=== PATIENT | female | born 2000 | race African-American/Black ===

== ENCOUNTER 2022-02-25 16:28 | Emergency (ER) | payer SELFPAY ==
[2022-02-25 16:29] VITALS: BP 121/81; PULSE 85; RESP 18; TEMP 36.1; O2SAT 100; BMI 17.9
--- NOTE | 2022-02-25 16:57 | ED.VIS.FEGU ---
HPI HPI - Female History of Present Illness Chief Complaint: Narrative Narrative: A0 female at 7 weeks 3 days presenting for evaluation. Apparently she was at [facility] last week and was having nausea and vomiting. She also complained of some intermittent spotting. She still has a little bit of spotting but no vivek discharge or passage of tissue or clots. She was diagnosed with first trimester . She had confirmed intrauterine yolk sac with pole not visible. No heartbeat was noted at that time. She was seen today for follow-up at a free clinic and they told her that she needed to have another ultrasound. Patient has not had any abdominal pain. Her nausea and vomiting is improved. Her hCG last week was 45,667 and they did tell her they ruled out ectopic . Her blood type was a positive. She did not require RhoGAM. PFSH PFSH Home Medications ondansetron 4 mg disintegrating tablet 4 mg PO Q6H PRN Nausea 02/25/22 [History Last Taken Unknown] Allergy/AdvReac Type Severity Reaction Status Date / Time No Known Allergies Allergy Verified 02/25/22 16:31 Social History Smoking Status: Current every day smoker tobacco type: smokeless tobacco ROS ROS ED Constitutional Constitutional ED: Denies chills or fever(s) Eyes Eyes: Denies change in vision or diplopia ENT ENT ED: Denies rhinorrhea or sore throat Cardiovascular Cardiovascular: Denies chest pain or palpitations Respiratory/Chest Respiratory/Chest: Denies cough or dyspnea Gastrointestinal Gastrointestinal: Reports nausea; Denies abdominal pain or vomiting Genitourinary Genitourinary ED: Reports other Details: Occasional scant vaginal spotting ; Denies dysuria or hematuria Musculoskeletal Musculoskeletal: Denies arthralgias or myalgias Integumentary Denies abscess or Abrasions Neurologic Neurologic: Denies headache(s) Psychiatric Psychiatric: Denies anxiety EXAM Physical Exam Const Vital Signs: 02/25/22 16:29 Temperature 97 F L Temperature Source Temporal Pulse Rate 85 Respiratory Rate 18 Blood Pressure 121/81 H Blood Pressure Mean 94 Pulse Ox 100 Oxygen Delivery Method Room Air Positive well nourished General Appearance ED: NAD; Negative for pallor HEENT Reports moist mucous membranes Eyes PERRL and EOMs intact bilaterally Resp normal respiratory effort Cardio regular rate and regular rhythm GI normal to inspection, nondistended, normoactive bowel sounds Back/Spine no CVA tenderness Neuro oriented x3 and CN's II-XII intact bilaterally Sensorium / Orientation: alert Motor Exam: strength 5/5 throughout Psych mental status grossly normal Skin no rashes or lesions noted General Skin Exam: Negative for jaundice or pallor MDM MDM MDM Narrative Medical decision making narrative: 21-year-old female A0 approximately 7 weeks 3 days. She is already had confirmed intrauterine gestation and her hCG was over 45,000 so she does not need an ectopic work-up. She has no pain on examination. I used a bedside ultrasound and was able to obtain heart tones at 168 bpm. Placenta pain on exam. No adnexal masses noted. Patient counseled that she will need obstructive follow-up. She states she is currently try to switch her insurance over from [place] to [place]. She is looking for Medicaid. I counseled her that if she has any new or worsening symptoms that she can return to the ER. Impression: 1. First trimester. 2. Threatened miscarriage Lab Data Attestation: I reviewed the patient's lab results. Discharge Plan Triage Chief Complaint: ED Provider: Kain Uriostegui Dx/Rx/DC Orders Instructions: ED Possible Miscarriage ... Prescriptions: No Action ondansetron [Zofran ODT] 4 mg Tablet,Disintegrating 4 mg PO Q6H PRN (Reason: Nausea) Primary Care Provider: NOT,DEFINED Referrals: NOT,DEFINED [Primary Care Provider] - Disposition Disposition: Home, Self Care
== END 2022-02-25 17:18 | disposition home or self-care (01) ==
PROVIDERS: Emergency Provider Student in an Organized Health Care Education/Training Program; Visit Provider Student in an Organized Health Care Education/Training Program
DX: O20.0 Threatened abortion (principal); O21.0 Mild hyperemesis gravidarum; O99.331 Smoking (tobacco) complicating pregnancy, first trimester; F17.220 Nicotine dependence, chewing tobacco, uncomplicated; Z3A.01 Less than 8 weeks gestation of pregnancy
CPT/HCPCS: 99282